=== PATIENT | male | born 1970 | race Two or more races ===

== ENCOUNTER 2021-11-02 06:45 | Emergency (ER) | payer OTHER ==
[~2021-11-02] VITALS: Ht 162.6 cm; Wt 81.0 kg
[2021-11-02] MEDS ORDERED: PRED20TA PO (07:07)
[2021-11-02] MEDS ORDERED: BENZ-38 PO (07:07)
[2021-11-02] MEDS ORDERED: ALBU18HF2 INH (07:07)
[2021-11-02] MEDS ORDERED: dexamethasone 4mg tablet PO ONE (07:10)
[2021-11-02 07:27] VITALS: BP 124/71
== END 2021-11-02 07:30 | disposition home or self-care (01) ==
LOC: ER 06:47 → EDBD 06:47 → ER 07:30
DX: J20.9 Acute bronchitis, unspecified (principal); J45.909 Unspecified asthma, uncomplicated
CPT/HCPCS: 99283